=== PATIENT | male | born 1965 | race African-American/Black ===

== ENCOUNTER 2017-05-02 02:32 | Emergency (ER) | payer SELFPAY ==
[2017-05-02] MEDS ORDERED: DIPHTH,PERTUSS(ACELL),TET TOX 0.5 ML DISP.SYRIN. VAX IM (03:04)
[2017-05-02] MEDS ORDERED: HYDROcodone/APAP 5/325MG 1 TAB TABLET (03:04)
[2017-05-02] MEDS: HYDROcodone/APAP 5/325MG 1 TAB TABLET PO (03:09)
[2017-05-02] MEDS: LIDOCAINE/EPI/TETRACAINE TOPICAL GEL 3 ML. TP (03:14)
[2017-05-02] MEDS: TETANUS AND DIPHTHERIA TOX/PF 0.5 ML DISP.SYRIN. VAX IM (03:16)
[2017-05-02] MEDS: DIPHTH,PERTUSS(ACELL),TET TOX 0.5 ML DISP.SYRIN. VAX IM (03:27)
== END 2017-05-02 04:14 | disposition home or self-care (01) ==
LOC: ER 02:32
DX: S01.01XA Laceration without foreign body of scalp, initial encounter (principal); W22.03XA Walked into furniture, initial encounter; Y93.89 Activity, other specified; Y92.89 Other specified places as the place of occurrence of the external cause; Y99.8 Other external cause status
CPT/HCPCS: 12001; 70450; 90471; 90715; 99284-25

== ENCOUNTER 2017-05-15 13:28 | Emergency (ER) | payer SELFPAY | END 2017-05-15 14:00 | disposition home or self-care (01) | LOC: ER 14:00 | DX: S01.01XD Laceration without foreign body of scalp, subsequent encounter (principal); W22.8XXD Striking against or struck by other objects, subsequent encounter | CPT/HCPCS: 99282 ==